=== PATIENT | female | born 1995 | race Caucasian/White ===

== ENCOUNTER 2018-01-31 09:19 | Emergency (ER) | payer OTHER ==
[2018-01-31] MEDS: SOD CHLORIDE 0.9% 1,000 ML IV (10:13)
[2018-01-31] MEDS: LORAZEPAM 2 MG INJ IV (10:13)
== END 2018-01-31 11:24 | disposition home or self-care (01) ==
LOC: E/R 11:24
DX: F14.90 Cocaine use, unspecified, uncomplicated (principal); F10.929 Alcohol use, unspecified with intoxication, unspecified; E86.0 Dehydration; F17.210 Nicotine dependence, cigarettes, uncomplicated
CPT/HCPCS: 36415; 93005; 96374; 99284-25